=== PATIENT | male | born 1930 | race Caucasian/White ===

== ENCOUNTER 2016-11-10 10:08 | Observation (INO) | payer OTHER ==
[~2016-11-10] VITALS: Ht 167.6 cm; Wt 78.0 kg
[~2016-11-10 10:08] MED LIST: ACTOS15 MG PO; ASPIR 8181 M1 PO; ASPIR-LOW81 MG PO; ASPIRIN81 M1 PO; AVANDIA4 MG PO; BUSPAR10 MG PO; BUSPAR15 MG PO; BUSPIRONE HCL15 MG PO; CALCITRIOL0.25 MCG PO; CELEXA20 MG PO; CILOSTAZOL100 MG PO; CITALOPRAM HBR20 M1 G-TUBE; COSOPT 0.5200 DROP/1 BOTH EYES; COSOPT EYE DROPS5 ML BOTH EYES; DONEPEZIL HCL5 MG PO; FUROSEMIDE40 MG PO; GLIPIZIDE5 MG PO; GLUCOPHAGE500 MG PO; GLUCOTROL5 MG PO; IBUPROFEN800 MG PO; LASIX80 MG PO; LIPITOR80 MG PO; METOPROLOL SUCC25 MG PO; MICRO-K,K-DUR,10 MEQ PO; NORVASC10 MG PO; NORVASC5 MG PO; PLAVIX75 MG PO; PROCRIT20000 UNI2 SC; SIMVASTATIN80 MG PO; TYLENOL EXTRA500 MG PO; VITAMIN B-12500 MC4 PO; VITAMIN D31000 UNI2 PO; VITAMIN D50000 UNI1 PO; ZESTRIL,PRINIVI20 MG PO; ZESTRIL,PRINIVIL5 MG PO; ZETIA10 MG PO
[2016-11-10 11:03] LABS: BASOPHIL COUNT 0.1 K/uL (0-0.1); EOSINOPHIL (%) 2.8 % (0-5); EOSINOPHIL COUNT 0.3 K/uL (0-0.3); HEMATOCRIT 38.3 % (38.0-50.0); IMMATURE GRANULOCYTE (%) 0.3 % (0.0-0.7); INSTRUMENT ABS NEUTROPHIL CT 6.7 K/uL; LYMPHOCYTE COUNT 1.6 K/uL (1.0-2.8); MCH 32.2 PG (29.0-34.0); MCHC 32.6 G/DL (30.0-36.0); MCV 98.7 FL (86-99); MEAN PLAT.VOLUME 9.5 uM^3 (9.0-12.4); MONOCYTE (%) 8.3 % (3-12); MONOCYTE COUNT 0.8 K/uL (0-0.8); NEUTROPHIL (%) 70.9 % (45-76); NEUTROPHIL COUNT 6.7 K/uL (1.8-6.4); PLATELET COUNT 283 K/uL (156-360); RBC DIS.WIDTH-CV 13.2 % (11.8-14.6); RBC DIS.WIDTH-SD 47.8 % (39-53); RED BLOOD COUNT 3.88 M/uL (4.00-5.50); WHITE BLOOD COUNT 9.4 K/uL (4.1-10.2)
[2016-11-10 11:12] LABS: PROTHROMBIN TIME 10.3 (9.2-11.2); PTT 28.5 (25-32)
[2016-11-10 11:15] LABS: CHLORIDE 107 mEq/L (99-109); POTASSIUM 4.2 mEq/L (3.7-5.4); SODIUM 140 mEq/L (136-147)
[2016-11-10 11:18] LABS: GLUCOSE 172 mg/dL (70-99)
[2016-11-10 11:19] LABS: ANION GAP 10 MEQ/L (2-14)
[2016-11-10 11:20] LABS: TOTAL BILIRUBIN 0.5 mg/dL (0.0-1.0)
[2016-11-10 11:21] LABS: ALKALINE PHOSPHATASE 74 IU/L (3-129); GFR ESTIMATE (CALCULATED) 29 mL/min/
[2016-11-10 11:22] LABS: UREA NITROGEN (BUN) 34 mg/dL (9-23)
[2016-11-10 11:25] LABS: TROP-I INTERPRETATION NEGATIVE; TROPONIN-I 0.02 ng/mL (0.0-0.30)
[2016-11-10 11:49] LABS: ADD MIUA? YES; BILIRUBIN NEGATIVE; BLOOD SMALL; COLOR YELLOW ((YELLOW)); GLUCOSE (STRIP) 150; KETONES NEGATIVE; LEUKOCYTES NEGATIVE; NITRITE NEGATIVE; PROTEIN (STRIP) 100; SPECIFIC GRAVITY 1.012 (1.000-1.030); UROBILINOGEN 0.2 MG/DL (0.2-1.0)
[2016-11-10 12:05] LABS: BACTERIA RARE /HPF; EPITHELIAL CELLS NONE SEEN /HPF; MUCUS NONE SEEN /LPF; RED BLOOD CELLS NONE SEEN /HPF (0-5); UCUL ADDED? NO; WHITE BLOOD CELLS 0-5 /HPF (0-5)
[2016-11-10] MEDS ORDERED: HUMALOG100 UNIT/2 SC (13:45)
[2016-11-10] MEDS ORDERED: TOUJEO SOL300 UNIT/1 SC (13:45)
[2016-11-10] MEDS ORDERED: HUMALOG KW200 UNIT/1 SQ (13:51)
[2016-11-10] MEDS ORDERED: CYANOCOBALAM1000 MCG PO (13:52)
[2016-11-10 14:44] LABS: HDL CHOLESTEROL 46 MG/DL (Desirable>=40); LDL CHOLESTEROL 86 mg/dL (Desirable<100); NON-HDL CHOLESTEROL 111 mg/dL (Desirable<160); TOTAL CHOLESTEROL 157 mg/dL (Desirable<200); TRIGLYCERIDES 127 MG/DL (Normal: <150)
[2016-11-10 15:05] LABS: Estimated Average Glucose 209 mg/dL (70-123); HEMOGLOBIN A1c (GLYCOHEMOGLOB) 8.9 % HGB (Below 5.7)
[2016-11-10 19:46] VITALS: BP 175/71
[2016-11-11 00:45] VITALS: BP 151/67
[2016-11-11 04:17] VITALS: BP 141/69
[2016-11-11 07:10] LABS: HEMATOCRIT 34.7 % (38.0-50.0); MCH 32.4 PG (29.0-34.0); MCHC 33.1 G/DL (30.0-36.0); MCV 97.7 FL (86-99); MEAN PLAT.VOLUME 9.6 uM^3 (9.0-12.4); PLATELET COUNT 261 K/uL (156-360); RBC DIS.WIDTH-CV 13.1 % (11.8-14.6); RBC DIS.WIDTH-SD 46.5 % (39-53); RED BLOOD COUNT 3.55 M/uL (4.00-5.50); WHITE BLOOD COUNT 7.2 K/uL (4.1-10.2)
[2016-11-11 08:13] VITALS: BP 147/70
[2016-11-11 11:17] VITALS: BP 136/96
[2016-11-11 16:28] LABS: POINT-OF-CARE METER ID UU14188625
[2016-11-11 16:45] LABS: POINT-OF-CARE METER ID UU14188625
== END 2016-11-11 16:51 | disposition home or self-care (01) ==
LOC: EME → EDBD 10:08 → 5SOUTH 12:59 → EDOF 12:59 → 5SOUTH 19:16
PROVIDERS: Emergency Medicine; Hospitalist; Internal Medicine
DX: I63.9 Cerebral infarction, unspecified (principal); I12.9 Hypertensive chronic kidney disease with stage 1 through stage 4 chronic kidney disease, or unspecified chronic kidney disease; N18.3 Chronic kidney disease, stage 3 (moderate); I25.10 Atherosclerotic heart disease of native coronary artery without angina pectoris; E11.9 Type 2 diabetes mellitus without complications; E78.5 Hyperlipidemia, unspecified; I73.9 Peripheral vascular disease, unspecified; E53.8 Deficiency of other specified B group vitamins; Z95.1 Presence of aortocoronary bypass graft
CPT/HCPCS: 70450; 70544; 70547; 70551; 80053; 80061; 81003; 82948; 83036; 84484; 85025; 85027; 85610; 85730; 87502; 92610 GN; 93005; 93306; 99281; 99285; G0378; J1644; J1815

== ENCOUNTER 2017-10-09 10:21 | Emergency (ER) | payer OTHER ==
[~2017-10-09] VITALS: Ht 167.6 cm; Wt 78.3 kg
[~2017-10-09 10:21] MED LIST changes: +CYANOCOBALAM1000 MCG PO; +HUMALOG KW200 UNIT/1 SQ; +HUMALOG100 UNIT/2 SC; +TOUJEO SOL300 UNIT/1 SC
[2017-10-09 11:39] LABS: BASOPHIL COUNT 0.1 K/uL (0-0.1); EOSINOPHIL (%) 1.9 % (0-5); EOSINOPHIL COUNT 0.2 K/uL (0-0.3); HEMATOCRIT 41.1 % (38.0-50.0); HEMOGLOBIN 13.8 G/DL (12.5-16.6); IMMATURE GRANULOCYTE (%) 0.4 % (0.0-0.7); LYMPHOCYTE (%) 11.4 % (15-42); LYMPHOCYTE COUNT 1.3 K/uL (1.0-2.8); MCHC 33.6 G/DL (30.0-36.0); MCV 95.4 FL (86-99); MONOCYTE (%) 4.9 % (3-12); MONOCYTE COUNT 0.6 K/uL (0-0.8); NEUTROPHIL (%) 80.4 % (45-76); PLATELET COUNT 256 K/uL (156-360); RBC DIS.WIDTH-CV 13.1 % (11.8-14.6); RBC DIS.WIDTH-SD 45.3 % (39-53); RED BLOOD COUNT 4.31 M/uL (4.00-5.50); WHITE BLOOD COUNT 11.1 K/uL (4.1-10.2)
[2017-10-09 11:49] LABS: APPEARANCE CLEAR ((CLEAR)); BILIRUBIN NEGATIVE; BLOOD NEGATIVE; COLOR YELLOW ((YELLOW)); GLUCOSE (STRIP) 150; KETONES NEGATIVE; LEUKOCYTES NEGATIVE; NITRITE NEGATIVE; PROTEIN (STRIP) 100; SPECIFIC GRAVITY 1.013 (1.000-1.030); UROBILINOGEN 0.2 MG/DL (0.2-1.0)
[2017-10-09 11:51] LABS: ALBUMIN 3.6 g/dL (3.2-4.8)
[2017-10-09 11:52] LABS: CHLORIDE 106 mEq/L (99-109); POTASSIUM 3.9 mEq/L (3.7-5.4); SODIUM 138 mEq/L (136-147)
[2017-10-09 11:54] LABS: GLUCOSE 142 mg/dL (70-99); TOTAL PROTEIN 6.5 g/dL (6.4-8.3)
[2017-10-09 11:56] LABS: TOTAL BILIRUBIN 0.6 mg/dL (0.0-1.0)
[2017-10-09 11:57] LABS: ALKALINE PHOSPHATASE 78 IU/L (3-129)
[2017-10-09 11:58] LABS: GFR ESTIMATE (CALCULATED) 34 mL/min/ (58.99-99999)
[2017-10-09 11:59] LABS: AST (GOT) 20 IU/L (2-34); UREA NITROGEN (BUN) 23 mg/dL (9-23)
[2017-10-09 12:00] LABS: BACTERIA NONE SEEN /HPF; EPITHELIAL CELLS NONE SEEN /HPF; HYALINE CASTS 0-5 /LPF; MUCUS TRACE /LPF; RED BLOOD CELLS 0-5 /HPF (0-5); WHITE BLOOD CELLS NONE SEEN /HPF (0-5)
[2017-10-09 12:01] LABS: ALT (GPT) 17 IU/L (3-49); LIPASE 15 U/L (1.0-51.0)
[2017-10-09] MEDS ORDERED: BENTYL20 MG PO (14:15)
[2017-10-09] MEDS ORDERED: MIRALAX17 GM PO (14:17)
[2017-10-09 14:24] VITALS: BP 143/66
== END 2017-10-09 15:33 | disposition home or self-care (01) ==
LOC: EME 10:21
PROVIDERS: Emergency Medicine
DX: R10.32 Left lower quadrant pain (principal); K59.00 Constipation, unspecified; K80.20 Calculus of gallbladder without cholecystitis without obstruction; I70.0 Atherosclerosis of aorta; I73.9 Peripheral vascular disease, unspecified; G20 Parkinson's disease; F03.90 Unspecified dementia, unspecified severity, without behavioral disturbance, psychotic disturbance, mood disturbance, and anxiety; I25.2 Old myocardial infarction; F32.9 Major depressive disorder, single episode, unspecified; Z79.4 Long term (current) use of insulin; Z79.02 Long term (current) use of antithrombotics/antiplatelets; Z87.891 Personal history of nicotine dependence; Z86.73 Personal history of transient ischemic attack (TIA), and cerebral infarction without residual deficits; Z95.1 Presence of aortocoronary bypass graft; Z90.49 Acquired absence of other specified parts of digestive tract
CPT/HCPCS: 71045; 74176; 74177; 80053; 81003; 83690; 85025; 93005; 99281; 99284